=== PATIENT | female | born 1985 | race Caucasian/White ===

== ENCOUNTER 2019-12-08 12:28 | Inpatient (IN) | payer SELFPAY ==
[2019-12-08] MEDS ORDERED: Promethazine HCl 25 MG/ML VIAL IM/IV PRN (15:45)
--- NOTE | 2019-12-08 15:46 | PDOC.HHP ---
Hospitalist HPI - History of Present Illness vomiting History of Present Illness: This is a 34 year old female with B12 deficiency who presented to the hospital with intractable vomiting. The patient states she lives in [place] and was in town looking for apartments in [place]. On Wednesday she ate some shrimp at a restaurant and at 1 am on Wednesday she developed severe vomiting. Patient states she has been vomiting everything she eats and even vomits ice chips. She tried a nausea suppository at home with no relief. It is non-bilious in color. She also reports RUQ and LUQ abdominal pain that occurs when she vomits that's non-radiating. She has some relief with taking hot baths. She also reported a fever, but no chills. She also has been having profuse diarrhea, too many times to count. Her diarrhea is not bloody. She went an outside ER today and said they swabbed her stool and it tested negative for E coli, parasites and viruses. She had a potassium of 2.8 and was given potassium supplements orally and states that she threw half of them up so was transferred here. The patient states she was recently admitted in [facility] in [place] from 11/24 -11/27 for intractable vomiting. She smoked some marijuana prior to that and on discharge was told to stop smoking. She reports having a CT abdomen done at that hospital and was told that she may have had a splenic infarct because of blood in her urine and to follow up with PCP. However she has no PCP so this did not occur. She reports she was starting to eat regularly again on 12/01 before this new episode occurred. Last sexual activity was last summer. ED Course: The patient went to an outside ER. Vitals showed BP of 146/100, HR 64, oxygen saturation 98% on room air, temp 97. CBC showed normal WBC of 9.1, hemoglobin 14.4. Potassium was 2.8. UA was negative. Urine HCG was negative. Stool culture was negative for Campylobacter, C diff, Plesiomonas, Salmonella, Vibro, Yersinia, E coli, ETEC, crypto, cyclospora, entamoeba, giardia, adenovirus, astrovirus, norovirus, rotavirus and sapovirus. She was sent here for severe dehydration. Hospitalist ROS - Review of Systems Constitutional: reports: fever. denies: chills ENT: denies: ear pain, ear discharge Respiratory: denies: cough, dry, shortness of breath Cardiovascular: denies: chest pain, palpitations, orthopnea Gastrointestinal: reports: nausea, vomiting, abdominal pain, diarrhea Genitourinary: reports: frequency. denies: dysuria, hematuria Musculoskeletal: denies: neck pain, shoulder pain Skin: denies: rash, lesions Neurological: denies: weakness, numbness Hospitalist History - Past Medical History Other Medical History: Vitamin B12 deficiency - Past Surgical History Other Surgical History: IUD Left arm - Family History Other Family History: No family history of GI disease - Social History Smoking Status: Current some day smoker (smokes occasionally. Smokes marijuana monthly) Alcohol: reports: Occassional Drugs: reports: none Living Situation: Other (lives with her daughter who is 18. Daughter is moving to [place] school) - Exam General Appearance: NAD, awake alert Eye: PERRL, anicteric sclera Eye - other findings: appears to have mild exopthalmos ENT: normocephalic atraumatic, no oropharyngeal lesions Neck: supple, no JVD Heart: RRR, no murmur, no gallops, no rubs Respiratory: CTAB, no wheezes, no rales, no ronchi Gastrointestinal: soft, non-distended, normal bowel sounds Gastrointestinal - other findings: RUQ tenderness Extremities: no cyanosis, no clubbing, no edema Skin: normal turgor, no lesions, no rashes Neurological: cranial nerve grossly intact, normal sensation to touch, no focal deficits, no new deficit Musculoskeletal: normal tone, normal strength, no muscle wasting Psychiatric: normal affect, normal behavior, A&O x 3, oriented to person, oriented to place Hospitalist Results - Labs Lab results: Labs reviewed per HPI mentioned above Hospitalist H&P A/P - Plan Plan: This is a 34 year old male with past medical history of B12 deficiency who presented to the hospital #Acute gastroenteritis versus cannabis hyperemesis syndrome #Intractable vomiting #Diarrhea #Hypokalemia - will hydrate with IV fluids for now. - will repeat stool cultures, stool for ova and parasite. Culture at outside hospital negative for C diff, viruses, bacteria. -pt wants to try clear liquids so will order but advised to go back to NPO if she does not tolerate - potassium 2.8 at outside ER today. Will repeat CMP and replace electrolytes accordingly - will obtain medical records regarding patient's prior CT abdomen in [place] - zofran and phenergan prn for nausea Vitamin B12 deficiency - will check Vitamin B12 levels since patient has no PCP and she stopped taking supplements recently Code status: full code
[2019-12-08 16:48] LABS: Hemoglobin 13.2 g/dL (12.0-16.0); Mean Corpuscular HGB CONC 33.7 g/dL (32.0-36.0); Mean Corpuscular Hemoglobin 30.3 pg (27.0-31.0); Mean Corpuscular Volume 89.9 fL (78.0-98.0); Mean Platelet Volume 8.2 fL (7.4-10.4); Platelet Count 272 thou/uL (130-400); RBC Distribution Width 11.4 % (11.5-14.5); Red Blood Cell (RBC) Count 4.35 mill/uL (4.20-5.40); White Blood Cell (WBC) Count 8.3 thou/uL (4.8-10.8)
[2019-12-08 17:08] LABS: ALT (SGPT) 9 U/L (8-55); AST (SGOT) 11 U/L (5-34); Albumin 4.1 g/dL (3.5-5.0); Alkaline Phosphatase 49 U/L (40-110); Anion Gap 10 mmol/L (10-20); BUN (Urea Nitrogen) 12 mg/dL (7.0-18.7); Bilirubin, Total 1.1 mg/dL (0.2-1.2); Calc. Creatinine Clearance 0 mL/min (70-130); Calcium 9.1 mg/dL (7.8-10.44); Carbon Dioxide 21 mmol/L (22-29); Chloride 112 mmol/L (98-107); Estimated GFR-MDRD 89; Globulin 2.3 g/dL (2.4-3.5); Glucose 90 mg/dL (70-105); Potassium 3.2 mmol/L (3.5-5.1); Protein, Total 6.4 g/dL (6.0-8.3); Sodium 140 mmol/L (136-145)
[2019-12-08 17:33] LABS: Thyroid Stimulating Hormone 1.3264 uIU/mL (0.35-4.94)
[2019-12-08 17:51] VITALS: BMI 23.6
[2019-12-08] MEDS ORDERED: Potassium Chloride 10 MEQ in Premix Bag 1 BAG IVPB SCH (18:00)
[2019-12-08] MEDS: Dextrose 5 % And 0.9 % NaCl 1,000 ML IV SCH (19:20)
[2019-12-08] MEDS: Potassium Chloride 10 MEQ in Premix Bag 1 BAG IVPB SCH ×3 (19:21→23:39)
[2019-12-08] MEDS: Ondansetron PF 4 MG/2 ML Vial IVP PRN (19:37)
[2019-12-08] MEDS: Famotidine 20 MG TAB PO SCH (20:35)
[2019-12-08] MEDS: Acetaminophen 325 MG TAB PO PRN (20:38)
[2019-12-08] MEDS ORDERED: Promethazine HCl 25 MG in Sodium Chloride 0.9% 50 ML IVPB PRN (22:53)
[2019-12-08] MEDS: Ketorolac Tromethamine 30 MG/ML VIAL IVP SCH (23:58)
[2019-12-09 01:42] LABS: Bacteria/HPF None Seen HPF (None Seen); Bilirubin Negative (Negative); Blood, Urine Negative (Negative); Clarity Clear (Clear); Glucose, Urine (Dipstick) Normal (Negative); Leukocyte 75 Leu/uL (Negative); Nitrite Negative (Negative); Protein, Urine (Dipstick) Negative (Neg-Trace); RBC/HPF 0-3 HPF (0-3); Urobilinogen Normal mg/dL (Less than 2); WBC/HPF 0-3 HPF (0-3)
[2019-12-09] MEDS: Lidocaine 5% Patch TD SCH (01:44)
[2019-12-09] MEDS: Lorazepam 2 MG/ML VIAL SLOW IVP PRN ×2 (01:45→16:18)
[2019-12-09 01:53] LABS: Amphetamine Not Detected (NotDetected); Barbiturates Screen Not Detected (NotDetected); Benzodiazepine Screen Not Detected (NotDetected); Cocaine Metabolite Screen Not Detected (NotDetected); Medtox Control Line Valid? VALID (VALID); Medtox Reader # READER 4; Methadone Not Detected (NotDetected); Methamphetamine Not Detected (NotDetected); Opiate Screen Detected (NotDetected); Oxycodone Screen Not Detected (NotDetected); Phencyclidine (PCP) Not Detected (NotDetected); THC/Cannabinoid Screen Detected (NotDetected); Tricyclic Screen Not Detected (NotDetected)
[2019-12-09] MEDS: Ketorolac Tromethamine 30 MG/ML VIAL IVP SCH ×2 (05:03→11:26)
[2019-12-09] MEDS: Acetaminophen 325 MG TAB PO PRN (05:05)
[2019-12-09] MEDS: Ondansetron PF 4 MG/2 ML Vial IVP PRN ×2 (05:05→11:28)
[2019-12-09] MEDS: Dextrose 5 % And 0.9 % NaCl 1,000 ML IV SCH ×3 (05:34→20:35)
[2019-12-09 06:08] LABS: Anion Gap 15 mmol/L (10-20); BUN (Urea Nitrogen) 7 mg/dL (7.0-18.7); Calc. Creatinine Clearance 124 mL/min (70-130); Calcium 9.4 mg/dL (7.8-10.44); Carbon Dioxide 16 mmol/L (22-29); Chloride 108 mmol/L (98-107); Estimated GFR-MDRD Greater than 90; Glucose 113 mg/dL (70-105); Potassium 3.2 mmol/L (3.5-5.1); Sodium 136 mmol/L (136-145)
[2019-12-09 06:18] LABS: #Lymphocytes 1.2 thou/uL (1.20-3.40); #Monocytes 0.3 thou/uL (0.11-0.59); #Neutrophils 5.8 thou/uL (1.40-6.50); %Basophils 0.4 % (0.0-1.0); %Eosinophils 0.1 % (0.0-10.0); %Lymphocytes 16.8 % (21.0-51.0); %Monocytes 3.8 % (0.0-10.0); %Neutrophils 79.1 % (42.0-75.0); Hemoglobin 14.6 g/dL (12.0-16.0); Mean Corpuscular HGB CONC 34.8 g/dL (32.0-36.0); Mean Corpuscular Hemoglobin 30.2 pg (27.0-31.0); Mean Platelet Volume 8.4 fL (7.4-10.4); Platelet Count 273 thou/uL (130-400); RBC Distribution Width 11.2 % (11.5-14.5); Red Blood Cell (RBC) Count 4.84 mill/uL (4.20-5.40); White Blood Cell (WBC) Count 7.3 thou/uL (4.8-10.8)
[2019-12-09] MEDS ORDERED: Potassium Chloride 20 MEQ TAB PO SCH (08:00)
[2019-12-09] MEDS ORDERED: Iopamidol-370 76% 500 ML 1 ML ONE (10:09)
[2019-12-09] MEDS ORDERED: Potassium Chloride 40 MEQ in Sodium Chloride 0.9% 250 ML 250 ML IVPB SCH (11:15)
[2019-12-09] MEDS: Famotidine 20 MG TAB PO SCH (11:21)
--- NOTE | 2019-12-09 13:57 | ULT ---
ULTRASOUND ABDOMEN LIMITED: (RIGHT UPPER QUADRANT) DATE: 12/09/2019 HISTORY: 34-year-old female with chills and vomiting. FINDINGS: Gallbladder: Normal wall thickness. No gallstones or sludge identified. No pericholecystic fluid. Liver: Normal parenchymal echogenicity. Right kidney: No hydronephrosis. Pancreas: Visualized, with no gross sonographic abnormality identified (although ultrasound is relati vely insensitive for the detection of pancreatic pathology compared to CT and MRI.). Common duct caliber: 5 mm. IMPRESSION: Normal.
[2019-12-09] MEDS: Morphine 2 MG/ML SYRINGE SLOW IVP PRN ×2 (13:58→20:33)
[2019-12-09] MEDS: Scopolamine 1.5 mg/72 hour Patch TD SCH (14:01)
[2019-12-09] MEDS: Lidocaine Patch Removal 1 EACH TOP SCH (14:14)
[2019-12-09 14:51] LABS: Pregnancy Test - Urine (BHCG) Negative (Negative); Pregu Control Background? CLEAR/WHITE (CLR/WHITE); Pregu Control Bar Appear? YES (CONTROL BAR); Specific Gravity 1.016 (1.002-1.036)
--- NOTE | 2019-12-09 17:38 | CT ---
CT ABDOMEN AND PELVIS WITH ORAL AND IV CONTRAST: 12/09/19 HISTORY: 34-year-old female with chills and vomiting, acute abdominal pain. FINDINGS: There are bilateral breast implants. The lung bases are clear. No calcified gallstones are seen. The liver, spleen, pancreas, adrenal glands, and kidneys are normal. No free air, free fluid or lymphaden opathy is seen in the abdomen or pelvis. Uterus and ovaries are present. The small bowel loops are no t abnormally dilated. An abnormal appendix is not visualized. No acute osseous abnormalities are seen . No osteolytic or osteoblastic lesions are noted. The abdominal aorta is of normal caliber. IMPRESSION: No acute process. POS: [facility]
[2019-12-09] MEDS ORDERED: Famotidine/PF 20 mg/2ml Vial SLOW IVP SCH (21:00)
--- NOTE | 2019-12-09 21:13 | PDOC.HOSPP ---
- Subjective Encounter Date: 12/09/19 Subjective: The patient still complaining of abdominal pain, nausea and vomiting. She is unable to tolerate any oral intake. - Objective Vital Signs & Weight: Vital Signs (12 hours) Temp Pulse Resp BP Pulse Ox 12/09/19 19:47 98.7 F 51 L 16 133/87 97 12/09/19 16:00 98.9 F 51 L 16 125/81 98 12/09/19 12:00 98.1 F 49 L 18 135/93 H 98 Weight Admit Weight 151 lb Weight 151 lb I&O: 12/08/19 12/09/19 12/10/19 06:59 06:59 06:59 Intake Total 250 1050 Output Total 1000 Balance 250 50 Result Diagrams: 12/09/19 05:17 12/09/19 05:17 Hospitalist ROS - Medication Medications: Active Medications Generic Name Dose Route Start Last Admin Trade Name Freq PRN Reason Stop Dose Admin Acetaminophen 650 mg 12/08/19 15:42 12/09/19 05:05 Tylenol PO 650 mg Q4H PRN Administration Headache/Fever/Mild Pain (1-3) Famotidine 20 mg 12/09/19 21:00 12/09/19 20:32 Pepcid SLOW IVP 20 mg BID YANELI Administration Dextrose/Sodium Chloride 1,000 mls @ 75 mls/hr 12/08/19 16:15 12/09/19 20:35 D5 0.9% Ns IV 1,000 mls .[id number] YANELI Administration Promethazine HCl 25 mg/ Sodium 51 mls @ 204 mls/hr 12/08/19 22:53 12/08/19 23 :13 Chloride IVPB 51 mls Q6H PRN Administration Nausea Lidocaine 1 patch 12/09/19 02:00 12/09/19 01:44 Lidoderm 5% Patch TD 1 patch 0200 YANELI Administration Lorazepam 1 mg 12/08/19 15:57 12/09/19 16:18 Ativan SLOW IVP 1 mg Q4H PRN Administration Nausea Miscellaneous Medication 1 each 12/09/19 14:00 12/09/19 14:14 Lidocaine Patch Removal TOP Not Given 1400 YANELI Morphine Sulfate 2 mg 12/09/19 13:23 12/09/19 20:33 Morphine SLOW IVP 2 mg Q4H PRN Administration Moderate to Severe Pain (6-10) Ondansetron HCl 4 mg 12/08/19 15:42 12/09/19 11:28 Zofran IVP 4 mg Q6H PRN Administration Nausea/Vomiting Scopolamine 1.5 mg 12/09/19 13:30 12/09/19 14:01 Transderm Scop TD 1.5 mg Q3D YANELI Administration - Exam General Appearance: awake alert ENT: normocephalic atraumatic Neck: supple Heart: RRR Respiratory: CTAB Gastrointestinal: soft, non-distended, normal bowel sounds Neurological: cranial nerve grossly intact, no focal deficits Hosp A/P (1) Intractable nausea and vomiting Code(s): R11.2 - NAUSEA WITH VOMITING, UNSPECIFIED Status: Acute (2) Dehydration Code(s): E86.0 - DEHYDRATION Status: Acute (3) Abdominal pain Code(s): R10.9 - UNSPECIFIED ABDOMINAL PAIN Status: Acute (4) Cannabis abuse Code(s): F12.10 - CANNABIS ABUSE, UNCOMPLICATED Status: Acute (5) Opioid abuse Code(s): F11.10 - OPIOID ABUSE, UNCOMPLICATED Status: Acute - Plan CT Abdomen and pelvis and US abdomen unremarkable. Her pain could be due to gastritis or cannabis hyperemesis syndrome. Continue IV fluids Start Protonix and scopolamine patch.
[2019-12-09] MEDS ORDERED: Sodium Chloride 0.9% (PF) 10 ML VIAL FS PRN (21:42)
[2019-12-09] MEDS ORDERED: Pantoprazole 40 MG VIAL IVP SCH (21:45)
[2019-12-10] MEDS: Lidocaine 5% Patch TD SCH (02:30)
[2019-12-10] MEDS: Pantoprazole 40 MG VIAL IVP SCH ×2 (09:11→20:26)
--- NOTE | 2019-12-10 11:13 | PDOC.HOSPP ---
- Subjective Encounter Date: 12/10/19 Subjective: Feels better. Less nausea and abdominal pain. Tolerating liquid. - Objective Vital Signs & Weight: Vital Signs (12 hours) Temp Pulse Resp BP Pulse Ox 12/10/19 07:42 98.2 F 56 L 16 110/71 97 12/10/19 05:00 17 12/10/19 00:00 18 Weight Admit Weight 151 lb Weight 151 lb I&O: 12/09/19 12/10/19 12/11/19 06:59 06:59 06:59 Intake Total 250 2110 Output Total 1000 Balance 250 1110 Result Diagrams: 12/09/19 05:17 12/09/19 05:17 Hospitalist ROS - Medication Medications: Active Medications Generic Name Dose Route Start Last Admin Trade Name Freq PRN Reason Stop Dose Admin Acetaminophen 650 mg 12/08/19 15:42 12/09/19 05:05 Tylenol PO 650 mg Q4H PRN Administration Headache/Fever/Mild Pain (1-3) Dextrose/Sodium Chloride 1,000 mls @ 75 mls/hr 12/08/19 16:15 12/09/19 20:35 D5 0.9% Ns IV 1,000 mls .[id number] YANELI Administration Promethazine HCl 25 mg/ Sodium 51 mls @ 204 mls/hr 12/08/19 22:53 12/08/19 23 :13 Chloride IVPB 51 mls Q6H PRN Administration Nausea Lidocaine 1 patch 12/09/19 02:00 12/10/19 02:30 Lidoderm 5% Patch TD Not Given 0200 YANELI Lorazepam 1 mg 12/08/19 15:57 12/09/19 16:18 Ativan SLOW IVP 1 mg Q4H PRN Administration Nausea Miscellaneous Medication 1 each 12/09/19 14:00 12/09/19 14:14 Lidocaine Patch Removal TOP Not Given 1400 YANELI Morphine Sulfate 2 mg 12/09/19 13:23 12/09/19 20:33 Morphine SLOW IVP 2 mg Q4H PRN Administration Moderate to Severe Pain (6-10) Ondansetron HCl 4 mg 12/08/19 15:42 12/09/19 11:28 Zofran IVP 4 mg Q6H PRN Administration Nausea/Vomiting Pantoprazole Sodium 40 mg 12/10/19 09:00 12/10/19 09:11 Protonix IVP 40 mg Q12HR YANELI Administration Scopolamine 1.5 mg 12/09/19 13:30 12/09/19 14:01 Transderm Scop TD 1.5 mg Q3D YANELI Administration - Exam General Appearance: awake alert ENT: normocephalic atraumatic Neck: supple, no JVD Respiratory: normal chest expansion, no tachypnea Neurological: cranial nerve grossly intact, no focal deficits Psychiatric: A&O x 3 Hosp A/P (1) Intractable nausea and vomiting Code(s): R11.2 - NAUSEA WITH VOMITING, UNSPECIFIED Status: Acute (2) Dehydration Code(s): E86.0 - DEHYDRATION Status: Acute (3) Abdominal pain Code(s): R10.9 - UNSPECIFIED ABDOMINAL PAIN Status: Acute (4) Cannabis abuse Code(s): F12.10 - CANNABIS ABUSE, UNCOMPLICATED Status: Acute (5) Opioid abuse Code(s): F11.10 - OPIOID ABUSE, UNCOMPLICATED Status: Acute - Plan CT Abdomen and pelvis and US abdomen unremarkable. Her pain could be due to gastritis or cannabis hyperemesis syndrome. Continue IV fluids Continue Protonix and scopolamine patch. Her symptoms are improving.
[2019-12-10] MEDS: Acetaminophen 325 MG TAB PO PRN (13:14)
[2019-12-10] MEDS: Ondansetron PF 4 MG/2 ML Vial IVP PRN (13:14)
[2019-12-10] MEDS: Dextrose 5 % And 0.9 % NaCl 1,000 ML IV SCH ×2 (13:27→22:02)
[2019-12-10] MEDS: Lidocaine Patch Removal 1 EACH TOP SCH (14:02)
[2019-12-10] MEDS: Morphine 2 MG/ML SYRINGE SLOW IVP PRN (20:32)
[2019-12-10] MEDS ORDERED: Famotidine/PF 20 mg/2ml Vial SLOW IVP SCH (21:00)
[2019-12-11] MEDS: Dextrose 5 % And 0.9 % NaCl 1,000 ML IV SCH ×2 (02:05→16:24)
[2019-12-11] MEDS: Lidocaine 5% Patch TD SCH (02:16)
[2019-12-11] MEDS: Pantoprazole 40 MG VIAL IVP SCH ×2 (08:08→20:30)
[2019-12-11 08:48] LABS: Hemoglobin 13.4 g/dL (12.0-16.0); Mean Corpuscular HGB CONC 34.9 g/dL (32.0-36.0); Mean Corpuscular Hemoglobin 30.9 pg (27.0-31.0); Mean Corpuscular Volume 88.5 fL (78.0-98.0); Mean Platelet Volume 7.9 fL (7.4-10.4); Platelet Count 223 thou/uL (130-400); Red Blood Cell (RBC) Count 4.35 mill/uL (4.20-5.40); White Blood Cell (WBC) Count 5.9 thou/uL (4.8-10.8)
[2019-12-11 09:02] LABS: Anion Gap 11 mmol/L (10-20); BUN (Urea Nitrogen) Less than 4 mg/dL (7.0-18.7); Calc. Creatinine Clearance 126 mL/min (70-130); Calcium 8.6 mg/dL (7.8-10.44); Carbon Dioxide 21 mmol/L (22-29); Chloride 110 mmol/L (98-107); Estimated GFR-MDRD Greater than 90; Glucose 98 mg/dL (70-105); Potassium 3.2 mmol/L (3.5-5.1); Sodium 139 mmol/L (136-145)
--- NOTE | 2019-12-11 10:23 | PDOC.HOSPP ---
- Subjective Encounter Date: 12/11/19 Subjective: Tolerating clear liquid diet. - Objective Vital Signs & Weight: Vital Signs (12 hours) Temp Pulse Resp BP Pulse Ox 12/11/19 07:03 98.5 F 59 L 16 109/71 99 Weight Admit Weight 151 lb Weight 151 lb I&O: 12/10/19 12/11/19 12/12/19 06:59 06:59 06:59 Intake Total 2110 1120 Output Total 1000 Balance 1110 1120 Result Diagrams: 12/11/19 08:39 12/11/19 08:39 Hospitalist ROS - Medication Medications: Active Medications Generic Name Dose Route Start Last Admin Trade Name Freq PRN Reason Stop Dose Admin Acetaminophen 650 mg 12/08/19 15:42 12/10/19 13:14 Tylenol PO 650 mg Q4H PRN Administration Headache/Fever/Mild Pain (1-3) Dextrose/Sodium Chloride 1,000 mls @ 75 mls/hr 12/08/19 16:15 12/11/19 02:05 D5 0.9% Ns IV 1,000 mls .[id number] YANELI Administration Lidocaine 1 patch 12/09/19 02:00 12/11/19 02:16 Lidoderm 5% Patch TD Not Given 0200 YANELI Lorazepam 1 mg 12/08/19 15:57 12/09/19 16:18 Ativan SLOW IVP 1 mg Q4H PRN Administration Nausea Miscellaneous Medication 1 each 12/09/19 14:00 12/10/19 14:02 Lidocaine Patch Removal TOP Not Given 1400 YANELI Morphine Sulfate 2 mg 12/09/19 13:23 12/10/19 20:32 Morphine SLOW IVP 2 mg Q4H PRN Administration Moderate to Severe Pain (6-10) Ondansetron HCl 4 mg 12/08/19 15:42 12/10/19 13:14 Zofran IVP 4 mg Q6H PRN Administration Nausea/Vomiting Pantoprazole Sodium 40 mg 12/10/19 09:00 12/11/19 08:08 Protonix IVP 40 mg Q12HR YANELI Administration Scopolamine 1.5 mg 12/09/19 13:30 12/09/19 14:01 Transderm Scop TD 1.5 mg Q3D YANELI Administration - Exam General Appearance: awake alert Neck: supple Gastrointestinal: soft, non-distended Neurological: cranial nerve grossly intact, no focal deficits Hosp A/P (1) Intractable nausea and vomiting Code(s): R11.2 - NAUSEA WITH VOMITING, UNSPECIFIED Status: Acute (2) Dehydration Code(s): E86.0 - DEHYDRATION Status: Acute (3) Abdominal pain Code(s): R10.9 - UNSPECIFIED ABDOMINAL PAIN Status: Acute (4) Cannabis abuse Code(s): F12.10 - CANNABIS ABUSE, UNCOMPLICATED Status: Acute (5) Opioid abuse Code(s): F11.10 - OPIOID ABUSE, UNCOMPLICATED Status: Acute - Plan CT Abdomen and pelvis and US abdomen unremarkable. Her pain could be due to gastritis or cannabis hyperemesis syndrome. Continue IV fluids Continue Protonix and scopolamine patch. Her symptoms are improving. Advance diet as tolerated.
[2019-12-11] MEDS: Lorazepam 2 MG/ML VIAL SLOW IVP PRN ×2 (11:42→20:30)
[2019-12-11 12:51] LABS: Band 1 % (5-11); Eosinophils 1 % (0-10); Lymphocytes 40 % (21-51); MDiff Complete? YES; Monocytes 6 % (0-10); Neutrophil 52 % (42-75); RBC Morphology Normal
[2019-12-11] MEDS: Lidocaine Patch Removal 1 EACH TOP SCH (14:16)
[2019-12-12] MEDS: Lidocaine 5% Patch TD SCH (01:58)
[2019-12-12] MEDS: Pantoprazole 40 MG VIAL IVP SCH ×2 (07:44→20:28)
[2019-12-12] MEDS: Ondansetron PF 4 MG/2 ML Vial IVP PRN ×3 (07:44→23:17)
--- NOTE | 2019-12-12 09:37 | PDOC.HOSPP ---
- Subjective Encounter Date: 12/12/19 Subjective: Persistent vomiting with bloodstreaks. - Objective Vital Signs & Weight: Vital Signs (12 hours) Temp Pulse Resp BP Pulse Ox 12/12/19 07:03 98.8 F 58 L 20 104/65 97 Weight Admit Weight 151 lb Weight 151 lb I&O: 12/11/19 12/12/19 12/13/19 06:59 06:59 06:59 Intake Total 1120 2780 Balance 1120 2780 Result Diagrams: 12/11/19 08:39 12/11/19 08:39 Hospitalist ROS - Medication Medications: Active Medications Generic Name Dose Route Start Last Admin Trade Name Freq PRN Reason Stop Dose Admin Acetaminophen 650 mg 12/08/19 15:42 12/10/19 13:14 Tylenol PO 650 mg Q4H PRN Administration Headache/Fever/Mild Pain (1-3) Dextrose/Sodium Chloride 1,000 mls @ 75 mls/hr 12/08/19 16:15 12/11/19 16:24 D5 0.9% Ns IV 1,000 mls .[id number] YANELI Administration Lidocaine 1 patch 12/09/19 02:00 12/12/19 01:58 Lidoderm 5% Patch TD Not Given 0200 YANELI Lorazepam 1 mg 12/08/19 15:57 12/11/19 20:30 Ativan SLOW IVP 1 mg Q4H PRN Administration Nausea Miscellaneous Medication 1 each 12/09/19 14:00 12/11/19 14:16 Lidocaine Patch Removal TOP Not Given 1400 YANELI Morphine Sulfate 2 mg 12/09/19 13:23 12/10/19 20:32 Morphine SLOW IVP 2 mg Q4H PRN Administration Moderate to Severe Pain (6-10) Ondansetron HCl 4 mg 12/08/19 15:42 12/12/19 07:44 Zofran IVP 4 mg Q6H PRN Administration Nausea/Vomiting Pantoprazole Sodium 40 mg 12/10/19 09:00 12/12/19 07:44 Protonix IVP 40 mg Q12HR YANELI Administration Scopolamine 1.5 mg 12/09/19 13:30 12/09/19 14:01 Transderm Scop TD 1.5 mg Q3D YANELI Administration - Exam General Appearance: ill appearing ENT: normocephalic atraumatic Neck: supple, no JVD Respiratory: normal chest expansion, no tachypnea Gastrointestinal: soft, tender to palpation Neurological: cranial nerve grossly intact, no focal deficits Hosp A/P (1) Intractable nausea and vomiting Code(s): R11.2 - NAUSEA WITH VOMITING, UNSPECIFIED Status: Acute (2) Dehydration Code(s): E86.0 - DEHYDRATION Status: Acute (3) Abdominal pain Code(s): R10.9 - UNSPECIFIED ABDOMINAL PAIN Status: Acute (4) Cannabis abuse Code(s): F12.10 - CANNABIS ABUSE, UNCOMPLICATED Status: Acute (5) Opioid abuse Code(s): F11.10 - OPIOID ABUSE, UNCOMPLICATED Status: Acute - Plan CT Abdomen and pelvis and US abdomen unremarkable. Her pain could be due to gastritis or cannabis hyperemesis syndrome. Pt with history of B12 Def. ? gastric atrophy with pernicious anemia. Continue IV fluids Continue Protonix and scopolamine patch. Clear liquid diet. Consulted Dr. Caballero.
[2019-12-12] MEDS ORDERED: Potassium Chloride 20 MEQ in Premix Bag 1 BAG IVPB SCH ×2 (10:00)
[2019-12-12] MEDS: Lorazepam 2 MG/ML VIAL SLOW IVP PRN ×2 (11:19→20:28)
[2019-12-12] MEDS: Acetaminophen 325 MG TAB PO PRN (11:36)
[2019-12-12 11:52] LABS: Mean Corpuscular HGB CONC 34.1 g/dL (32.0-36.0); Mean Corpuscular Hemoglobin 30.4 pg (27.0-31.0); Mean Corpuscular Volume 89.1 fL (78.0-98.0); Mean Platelet Volume 8.4 fL (7.4-10.4); Platelet Count 263 thou/uL (130-400); RBC Distribution Width 11.2 % (11.5-14.5); Red Blood Cell (RBC) Count 4.62 mill/uL (4.20-5.40); White Blood Cell (WBC) Count 6.4 thou/uL (4.8-10.8)
[2019-12-12 12:09] LABS: Anion Gap 13 mmol/L (10-20); BUN (Urea Nitrogen) Less than 4 mg/dL (7.0-18.7); Calc. Creatinine Clearance 120 mL/min (70-130); Calcium 9.2 mg/dL (7.8-10.44); Carbon Dioxide 23 mmol/L (22-29); Chloride 108 mmol/L (98-107); Estimated GFR-MDRD Greater than 90; Glucose 98 mg/dL (70-105); Sodium 141 mmol/L (136-145)
[2019-12-12 12:19] LABS: Band 4 % (5-11); Eosinophils 1 % (0-10); Lymphocytes 27 % (21-51); MDiff Complete? YES; Metamyelocyte 2 % (0-0); Neutrophil 63 % (42-75); Reactive Lymphocytes 3 % (0-10)
--- NOTE | 2019-12-12 12:39 | CON ---
DATE OF CONSULTATION: 12/12/2019 REQUESTING PHYSICIAN: Maria De Jesus Scott MD REASON FOR CONSULTATION: Nausea and vomiting with hematemesis. HISTORY OF PRESENT ILLNESS: Hui Castillo is a 34-year-old woman who lives in [place]. She was admitted to the hospital 4 days ago with acute recurrence of nausea and vomiting, which had actually started back up several days prior. Notably, she was hospitalized in mid November in [place] with similar symptoms. She evidently had CT lab and stool workup there, which was all negative and the impression was probable cannabinoid hyperemesis syndrome. After discharge, she did well for several days, but eventually started having symptoms again 1 week ago. She says initially there was a lot of vomiting and a lot of nonbloody diarrhea. The diarrhea quickly resolved after admission here, but the nausea and vomiting have persisted. Then this morning, there started to be some red blood streaks in the emesis and this was quite alarming to her. She has associated epigastric discomfort. Notably, she says that at least when symptoms started, the only way she could get relief was by getting in a very hot bath. However, she is not really feeling that is giving her much relief at this point. She has been receiving pantoprazole IV as well as Zofran, all without much relief of symptoms at this point. REVIEW OF SYSTEMS: Full review of systems including constitutional, head, eyes, ears, nose, throat, GI, , cardiovascular, respiratory, musculoskeletal, neurologic systems is negative except as noted in the HPI. PAST MEDICAL HISTORY: Vitamin B12 deficiency, IUD. FAMILY HISTORY: She says her paternal grandfather had colon cancer. SOCIAL HISTORY: She will occasionally smoke cigarettes and occasionally drink alcohol. She has a history of marijuana use, which she terms occasional ever since age 14 or so, but she has completely quit all marijuana for the past 3 weeks since her recent hospitalization. ALLERGIES: NO KNOWN DRUG ALLERGIES. MEDICATIONS: 1. Tylenol p.r.n. 2. Lidocaine patch. 3. Ativan p.r.n. 4. Morphine p.r.n. 5. Zofran p.r.n. 6. Pantoprazole 40 mg IV q.12 hours. 7. Scopolamine patch. PHYSICAL EXAMINATION: VITAL SIGNS: Temperature 98.8, pulse 58, blood pressure 104/65, 97% oxygen saturation on room air. GENERAL: A 34-year-old woman, lying in bed fairly comfortably, in mild distress from nausea. Appears tired, but nontoxic. SKIN: No jaundice. No rashes were palpable. HEENT: Eyes; no scleral icterus. Extraocular movements intact. ENT; mucous membranes moist. No oral lesions. LYMPH: No submandibular or supraclavicular lymphadenopathy. Thyroid nontender to palpation. HEART: Regular rate and rhythm. LUNGS: Clear to auscultation bilaterally. ABDOMEN: Soft, nontender to palpation. EXTREMITIES: No peripheral edema. VESSELS: Radial pulses 2+ bilaterally. NEUROLOGIC: Cranial nerves 2 through 12 intact bilaterally. No focal deficits. LABORATORY STUDIES: Hemoglobin 13.4 and stable, WBC 5.9, platelets 223. Sodium 139, potassium 3.2, BUN less than 4, creatinine 0.67, glucose 98. TSH 1.32. Vitamin B12 is 551. LFTs all normal with total bilirubin is 1.1, alkaline phosphatase 49, AST 11, ALT 9, and albumin 4.1. Urine test is negative. Urinalysis is negative for wbc's. Urine drug screen is positive for both opioids and cannabinoids. Outside ER labs showed extensive stool studies, which were all negative. IMAGING STUDIES: Abdominal ultrasound was normal showing normal gallbladder, liver, and common bile duct. CT of the abdomen and pelvis is also normal exam. ASSESSMENT/PLAN: 1. Nausea and vomiting, intractable. 2. Hematemesis, small volume, acute this morning. 3. History of long-term marijuana use. The patient's report of relief with hot baths and showers, as well as fairly extensive negative workup to date, is all highly suggestive of cannabinoid hyperemesis syndrome. On the other hand, she has never undergone upper endoscopy, so cannot rule out upper GI mucosal pathology. The current scant hematemesis likely represents erosive esophagitis from all of her recent vomiting, perhaps small Nina-Bo tear, but she is clinically stable from this. Certainly, endoscopic investigation is warranted. Continue the pantoprazole IV q.12 hours for now, but we will plan for diagnostic esophagogastroduodenoscopy tomorrow. I discussed with the patient that she does need to continue to avoid all marijuana going forward as she has for the past few weeks. Further recommendations following esophagogastroduodenoscopy tomorrow. I do not see a lipase level. Clinically, this does not appear to represent pancreatitis and notes normal appearing pancreas on imaging. However, we will order a lipase level with tomorrow morning's labs. Thank you for the consultation. Please call anytime with questions or concerns. Job ID: [id number]
[2019-12-12] MEDS: Scopolamine 1.5 mg/72 hour Patch TD SCH (14:14)
[2019-12-12] MEDS: Lidocaine Patch Removal 1 EACH TOP SCH (14:15)
[2019-12-12 22:08] LABS: Potassium 3.3 mmol/L (3.5-5.1)
[2019-12-12] MEDS: Morphine 2 MG/ML SYRINGE SLOW IVP PRN (23:15)
[2019-12-12] MEDS: Dextrose 5 % And 0.9 % NaCl 1,000 ML IV SCH (23:26)
[2019-12-13] MEDS: Lidocaine 5% Patch TD SCH (00:29)
[2019-12-13] MEDS: Lorazepam 2 MG/ML VIAL SLOW IVP PRN ×3 (00:30→23:02)
[2019-12-13 06:11] LABS: Anion Gap 10 mmol/L (10-20); BUN (Urea Nitrogen) 5 mg/dL (7.0-18.7); Calc. Creatinine Clearance 118 mL/min (70-130); Calcium 8.7 mg/dL (7.8-10.44); Carbon Dioxide 25 mmol/L (22-29); Chloride 105 mmol/L (98-107); Estimated GFR-MDRD Greater than 90; Glucose 83 mg/dL (70-105); Lipase 10 U/L (8-78); Potassium 3.3 mmol/L (3.5-5.1); Sodium 137 mmol/L (136-145)
[2019-12-13 06:12] LABS: Eosinophils 2 % (0-10); Hemoglobin 12.6 g/dL (12.0-16.0); Lymphocytes 41 % (21-51); MDiff Complete? YES; Mean Corpuscular HGB CONC 34.2 g/dL (32.0-36.0); Mean Corpuscular Hemoglobin 30.7 pg (27.0-31.0); Mean Corpuscular Volume 89.8 fL (78.0-98.0); Mean Platelet Volume 8.3 fL (7.4-10.4); Monocytes 5 % (0-10); Neutrophil 50 % (42-75); Platelet Count 229 thou/uL (130-400); Platelet Morphology Comment Appears Adequate; RBC Morphology Normal; Reactive Lymphocytes 2 % (0-10); Red Blood Cell (RBC) Count 4.09 mill/uL (4.20-5.40); White Blood Cell (WBC) Count 5.2 thou/uL (4.8-10.8)
[2019-12-13] MEDS: Pantoprazole 40 MG VIAL IVP SCH (08:30)
[2019-12-13] MEDS: Dextrose 5 % And 0.9 % NaCl 1,000 ML IV SCH (08:30)
[2019-12-13] MEDS ORDERED: Lidocaine 1% PF 5 ML VIAL ONE (09:33)
[2019-12-13] MEDS ORDERED: PROPOFOL 200 MG/20 ML VIAL ONE (09:33)
[2019-12-13] MEDS ORDERED: Meperidine HCl/PF 25 MG/ML VIAL SLOW IVP PRN (10:36)
[2019-12-13] MEDS ORDERED: Promethazine HCl 25 MG/ML VIAL IM PRN (10:36)
[2019-12-13] MEDS ORDERED: HYDROmorphone 2 MG/ML VIAL SLOW IVP PRN (10:36)
[2019-12-13] MEDS ORDERED: Ketorolac Tromethamine 30 MG/ML VIAL IVP PRN (10:36)
[2019-12-13] MEDS ORDERED: Promethazine HCl 25 MG/ML VIAL SLOW IVP PRN (10:36)
[2019-12-13] MEDS ORDERED: Ondansetron HCl/PF 4 MG/2 ML Vial IVP PRN (10:36)
[2019-12-13] MEDS ORDERED: Ondansetron PF 4 MG/2 ML Vial ONE (10:38)
[2019-12-13] MEDS: Metoclopramide HCl 10 MG/2 ML VIAL IVP SCH ×3 (11:57→23:02)
[2019-12-13] MEDS: Ondansetron PF 4 MG/2 ML Vial IVP SCH ×3 (11:58→23:02)
[2019-12-13] MEDS ORDERED: Lidocaine Patch Removal 1 EACH TOP SCH (13:00)
--- NOTE | 2019-12-13 15:22 | PDOC.HOSPP ---
- Subjective Encounter Date: 12/13/19 Subjective: Complains of nausea. - Objective Vital Signs & Weight: Vital Signs (12 hours) Temp Pulse Resp BP BP BP Pulse Ox 12/13/19 11:04 97.1 F L 50 L 16 121/78 98 12/13/19 08:00 98 12/13/19 07:10 98.5 F 61 20 124/81 98 12/13/19 05:00 98.0 F 62 16 135/84 96 Weight Admit Weight 151 lb Weight 151 lb I&O: 12/12/19 12/13/19 12/14/19 06:59 06:59 06:59 Intake Total 2780 Balance 2780 Result Diagrams: 12/13/19 05:11 12/13/19 05:11 Hospitalist ROS - Medication Medications: Active Medications Generic Name Dose Route Start Last Admin Trade Name Freq PRN Reason Stop Dose Admin Acetaminophen 650 mg 12/08/19 15:42 12/12/19 11:36 Tylenol PO 650 mg Q4H PRN Administration Headache/Fever/Mild Pain (1-3) Dextrose/Sodium Chloride 1,000 mls @ 75 mls/hr 12/08/19 16:15 12/13/19 08:30 D5 0.9% Ns IV 1,000 mls .[id number] YANELI Administration Lidocaine 1 patch 12/13/19 01:00 12/13/19 00:29 Lidoderm 5% Patch TD 1 patch 0100 YANELI Administration Lorazepam 1 mg 12/08/19 15:57 12/13/19 00:30 Ativan SLOW IVP 1 mg Q4H PRN Administration Nausea Metoclopramide HCl 10 mg 12/13/19 11:00 12/13/19 11:57 Reglan IVP 10 mg Q6H YANELI Administration Morphine Sulfate 2 mg 12/09/19 13:23 12/12/19 23:15 Morphine SLOW IVP 2 mg Q4H PRN Administration Moderate to Severe Pain (6-10) Ondansetron HCl 4 mg 12/13/19 11:00 12/13/19 11:58 Zofran IVP 4 mg Q6H YANELI Administration Scopolamine 1.5 mg 12/09/19 13:30 12/12/19 14:14 Transderm Scop TD 1.5 mg Q3D YANELI Administration - Exam General Appearance: awake alert ENT: normocephalic atraumatic Neck: supple Respiratory: normal chest expansion, no tachypnea Extremities: no cyanosis Neurological: cranial nerve grossly intact, no weakness Hosp A/P (1) Intractable nausea and vomiting Code(s): R11.2 - NAUSEA WITH VOMITING, UNSPECIFIED Status: Acute (2) Dehydration Code(s): E86.0 - DEHYDRATION Status: Acute (3) Abdominal pain Code(s): R10.9 - UNSPECIFIED ABDOMINAL PAIN Status: Acute (4) Cannabis abuse Code(s): F12.10 - CANNABIS ABUSE, UNCOMPLICATED Status: Acute (5) Opioid abuse Code(s): F11.10 - OPIOID ABUSE, UNCOMPLICATED Status: Acute - Plan CT Abdomen and pelvis and US abdomen unremarkable. Her pain could be due to gastritis or cannabis hyperemesis syndrome. Pt with history of B12 Def. ? gastric atrophy with pernicious anemia. Continue IV fluids Continue Protonix and scopolamine patch. Clear liquid diet. Consulted Dr. Caballero. S/P EGD. Awaiting the results. She is malnurished and her PO intake not improving. We will initiate PPN.
--- NOTE | 2019-12-13 16:57 | OP ---
DATE OF PROCEDURE: 12/13/2019 PROCEDURE: Esophagogastroduodenoscopy. PREMEDICATION: Given by Anesthesiology Department. PREPROCEDURE DIAGNOSES: 1. Persistent nausea and vomiting. 2. History of limited hematemesis. POSTPROCEDURE DIAGNOSIS: Normal upper endoscopy to third portion of duodenum. DESCRIPTION OF PROCEDURE: Written consents were obtained prior to procedure. After adequate sedation, the forward-viewing endoscope was advanced down the stomach under direct vision to the third portion of duodenum. The duodenum and the bulb appeared normal. The pylorus was patent. The gastric antrum, body, fundus, and cardia all appeared normal. Retroflexion did not show any abnormality. The GE junction with a regular Z-line was noted at 41 cm. The distal, mid, and upper esophagus appeared normal. There was no mucosal abnormality. Inspection of the hypopharynx also appeared normal. ASSESSMENT: 1. Normal upper endoscopy. 2. Differential diagnosis of her persistent nausea, vomiting include hyperemesis , cannabinoid syndrome, postviral gastroparesis. RECOMMENDATION: 1. Scheduled IV metoclopramide and closely monitor for any side effects. 2. Change ondansetron to 4 mg q.6 scheduled. 3. We will start with clear liquids and advance as tolerated. Job ID: [id number] MTDD
[2019-12-13] MEDS: D5W-AA 4.25% with LYTES 1,000 ML BAG IV SCH (20:29)
[2019-12-14] MEDS: Lidocaine 5% Patch TD SCH ×2 (03:14→05:29)
[2019-12-14] MEDS: Dextrose 5 % And 0.9 % NaCl 1,000 ML IV SCH ×2 (03:14→14:30)
[2019-12-14] MEDS: Ondansetron PF 4 MG/2 ML Vial IVP SCH ×4 (04:59→23:52)
[2019-12-14] MEDS: Metoclopramide HCl 10 MG/2 ML VIAL IVP SCH ×3 (04:59→17:07)
[2019-12-14 06:14] LABS: Hemoglobin 12.8 g/dL (12.0-16.0); Mean Corpuscular HGB CONC 33.8 g/dL (32.0-36.0); Mean Corpuscular Hemoglobin 30.2 pg (27.0-31.0); Mean Corpuscular Volume 89.4 fL (78.0-98.0); Mean Platelet Volume 8.6 fL (7.4-10.4); Platelet Count 242 thou/uL (130-400); RBC Distribution Width 11.1 % (11.5-14.5); Red Blood Cell (RBC) Count 4.25 mill/uL (4.20-5.40); White Blood Cell (WBC) Count 6.5 thou/uL (4.8-10.8)
[2019-12-14 06:15] LABS: Band 1 % (5-11); Eosinophils 1 % (0-10); Lymphocytes 41 % (21-51); MDiff Complete? YES; Monocytes 5 % (0-10); Neutrophil 51 % (42-75); Platelet Morphology Comment Appears Adequate
[2019-12-14 06:18] LABS: Anion Gap 10 mmol/L (10-20); BUN (Urea Nitrogen) 9 mg/dL (7.0-18.7); Calc. Creatinine Clearance 126 mL/min (70-130); Carbon Dioxide 25 mmol/L (22-29); Chloride 105 mmol/L (98-107); Estimated GFR-MDRD Greater than 90; Glucose 96 mg/dL (70-105); Potassium 3.4 mmol/L (3.5-5.1); Sodium 137 mmol/L (136-145)
[2019-12-14] MEDS: D5W-AA 4.25% with LYTES 1,000 ML BAG IV SCH ×2 (08:18→19:37)
--- NOTE | 2019-12-14 17:06 | PDOC.HOSPP ---
- Subjective Encounter Date: 12/14/19 Subjective: Feels better. - Objective Vital Signs & Weight: Vital Signs (12 hours) Temp Pulse Resp BP Pulse Ox 12/14/19 07:20 98.5 F 85 16 108/70 97 Weight Admit Weight 151 lb Weight 151 lb Result Diagrams: 12/14/19 05:17 12/14/19 05:17 Hospitalist ROS - Medication Medications: Active Medications Generic Name Dose Route Start Last Admin Trade Name Freq PRN Reason Stop Dose Admin Acetaminophen 650 mg 12/08/19 15:42 12/12/19 11:36 Tylenol PO 650 mg Q4H PRN Administration Headache/Fever/Mild Pain (1-3) Amino Acids/Electrolytes/Dextrose 1,000 ml 12/13/19 15:30 12/14/19 08:18 Clinimix E 4.25/5 IV 1,000 ml INF YANELI Administration Dextrose/Sodium Chloride 1,000 mls @ 75 mls/hr 12/08/19 16:15 12/14/19 14:30 D5 0.9% Ns IV Not Given .[id number] YANELI Lidocaine 1 patch 12/14/19 06:00 12/14/19 05:29 Lidoderm 5% Patch TD 1 patch 0600 YANELI Administration Lorazepam 1 mg 12/08/19 15:57 12/13/19 23:02 Ativan SLOW IVP 1 mg Q4H PRN Administration Nausea Metoclopramide HCl 10 mg 12/13/19 11:00 12/14/19 11:50 Reglan IVP 10 mg Q6H YANELI Administration Morphine Sulfate 2 mg 12/09/19 13:23 12/12/19 23:15 Morphine SLOW IVP 2 mg Q4H PRN Administration Moderate to Severe Pain (6-10) Ondansetron HCl 4 mg 12/13/19 11:00 12/14/19 11:50 Zofran IVP 4 mg Q6H YANELI Administration Scopolamine 1.5 mg 12/09/19 13:30 12/12/19 14:14 Transderm Scop TD 1.5 mg Q3D YANELI Administration - Exam General Appearance: awake alert ENT: normocephalic atraumatic Neck: supple Respiratory: normal chest expansion, no tachypnea Gastrointestinal: non-tender Neurological: cranial nerve grossly intact, no focal deficits Hosp A/P (1) Intractable nausea and vomiting Code(s): R11.2 - NAUSEA WITH VOMITING, UNSPECIFIED Status: Acute (2) Dehydration Code(s): E86.0 - DEHYDRATION Status: Acute (3) Abdominal pain Code(s): R10.9 - UNSPECIFIED ABDOMINAL PAIN Status: Acute (4) Cannabis abuse Code(s): F12.10 - CANNABIS ABUSE, UNCOMPLICATED Status: Acute (5) Opioid abuse Code(s): F11.10 - OPIOID ABUSE, UNCOMPLICATED Status: Acute - Plan CT Abdomen and pelvis and US abdomen unremarkable. Her pain could be due to gastritis or cannabis hyperemesis syndrome. Pt with history of B12 Def. ? gastric atrophy with pernicious anemia. Continue IV fluids Continue Protonix and scopolamine patch. Clear liquid diet. EGD negative. Likely motility disorder. Improved with Metoclopramide. Advance to full liquid diet.
[2019-12-14] MEDS ORDERED: Lidocaine Patch Removal 1 EACH TOP SCH (18:00)
[2019-12-14] MEDS ORDERED: Promethazine HCl 25 MG/ML VIAL IM/IV PRN (20:18)
[2019-12-14] MEDS ORDERED: Promethazine HCl 25 MG/ML VIAL IM PRN (20:37)
[2019-12-14] MEDS ORDERED: Promethazine HCl 25 MG in Sodium Chloride 0.9% 50 ML IVPB PRN (20:38)
--- NOTE | 2019-12-14 20:40 | PRG ---
DATE OF SERVICE: 12/14/2019 SUBJECTIVE: Ms. Castillo was getting up to the bathroom when I came in to see her. She apparently inadvertently had a regular diet instead of full liquids and has done okay, but her stomach feels a little upset. There was about 20 minutes ago. She has not thrown up. Her appetite is better, but she states she does read a little bit about hyperemesis from cannabis and states she does not think she smokes much marijuana, that syndrome is described with. She does not recall getting sick from eating. She is not anything like this in the past. She is feeling better. I did review her chart with previous imaging studies including CAT scan, ultrasound, and the endoscopy. OBJECTIVE: VITAL SIGNS: Temperature is 98, pulse 60, and blood pressure 136/86. GENERAL: The patient is in no distress. She is on her way to the restroom. LABORATORY DATA: None today except for a white blood cell count of 6.5, hemoglobin of 12, and platelet count 142. She did have a low potassium that was last checked on 12/11. ASSESSMENT: Hyperemesis of unclear etiology. This may have been viral. This could have been related to cannabis. She seems to be improving. RECOMMENDATIONS: 1. Advanced diet as tolerated. We will recommend she do a very low residue, bland diet as she would advance this. 2. We would try to wean off narcotics. This is really not going to be very helpful and the scopolamine patch probably has not either. The Reglan could be used until it is not needed. I would place her on a PPI in case she may be having some reflux. We will follow along with you. Job ID: [id number]
[2019-12-14] MEDS ORDERED: Acetaminophen 650 MG Suppository PR PRN (21:12)
[2019-12-15] MEDS: Dextrose 5 % And 0.9 % NaCl 1,000 ML IV SCH ×2 (01:51→12:44)
[2019-12-15 05:58] LABS: Hemoglobin 13.4 g/dL (12.0-16.0); Mean Corpuscular HGB CONC 33.5 g/dL (32.0-36.0); Mean Corpuscular Hemoglobin 30.2 pg (27.0-31.0); Mean Platelet Volume 8.5 fL (7.4-10.4); Platelet Count 230 thou/uL (130-400); RBC Distribution Width 11.2 % (11.5-14.5); Red Blood Cell (RBC) Count 4.45 mill/uL (4.20-5.40); White Blood Cell (WBC) Count 5.6 thou/uL (4.8-10.8)
[2019-12-15 06:13] LABS: Anion Gap 14 mmol/L (10-20); BUN (Urea Nitrogen) 15 mg/dL (7.0-18.7); Calc. Creatinine Clearance 122 mL/min (70-130); Calcium 9.1 mg/dL (7.8-10.44); Carbon Dioxide 23 mmol/L (22-29); Chloride 106 mmol/L (98-107); Estimated GFR-MDRD Greater than 90; Glucose 93 mg/dL (70-105); Potassium 3.6 mmol/L (3.5-5.1); Sodium 139 mmol/L (136-145)
[2019-12-15] MEDS: Lidocaine 5% Patch TD SCH (06:17)
[2019-12-15] MEDS: Ondansetron PF 4 MG/2 ML Vial IVP SCH ×2 (06:18→11:06)
[2019-12-15 08:21] VITALS: BP 115/77; TEMP 98.1
[2019-12-15] MEDS: D5W-AA 4.25% with LYTES 1,000 ML BAG IV SCH (08:37)
[2019-12-15 09:20] LABS: Band 1 % (5-11); Eosinophils 3 % (0-10); Lymphocytes 37 % (21-51); MDiff Complete? YES; Monocytes 10 % (0-10); Neutrophil 49 % (42-75); RBC Morphology Normal
[2019-12-15] MEDS: Scopolamine 1.5 mg/72 hour Patch TD SCH (13:10)
--- NOTE | 2019-12-15 17:17 | PRG ---
DATE OF SERVICE: 12/15/2019 SUBJECTIVE: Ms. Castillo is feeling much better. She states this is the best she has felt of the day since she has been here. OBJECTIVE: VITAL SIGNS: Temperature is 98, pulse 81, blood pressure 115/77. ABDOMEN: Soft, nontender. She is no longer having diarrhea. She is tolerating liquids well. LABORATORY DATA: White count 5.6, hemoglobin 13, platelet count potassium is 3.6 now. Electrolytes otherwise normal. 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 Normal EGD. Normal CAT scan and ultrasound. I think she can go home with a full liquid diet, advance as tolerated, p.r.n. Zofran or Reglan. If needed, she can follow up with primary physician in our office in 1 to 2 weeks. Job ID: [id number]
--- NOTE | 2019-12-16 01:50 | DIS ---
DATE OF ADMISSION: 12/08/2019 DATE OF DISCHARGE: 12/15/2019 DISCHARGE DIAGNOSES: 1. Hematemesis. 2. 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 3. Dehydration. 4. Abdominal pain. 5. Cannabis abuse. 6. Opioid abuse. DISCHARGE MEDICATIONS: 1. Protonix 40 mg orally daily. 2. Metoclopramide 5 mg orally twice daily as needed for nausea x10 tablets. HISTORY OF PRESENT ILLNESS AND HOSPITAL COURSE: The patient is a 34-year-old female with history of vitamin B12 deficiency, who presented to the hospital with intractable nausea and vomiting. Her symptoms started 2 days prior to presentation and she has not been able to keep anything down since then. She also complained of abdominal pain, right upper quadrant and left upper quadrant pain. She denied fever or chills. She did have some diarrhea prior to presentation. The patient was found to be clinically dehydrated and was admitted to the hospital for further evaluation. She received IV fluids and was managed initially with bowel rest. Gradual advancement of diet was not well tolerated and the patient continued to vomit. GI was consulted and she underwent upper GI endoscopy, which showed normal findings. Her continued vomiting was thought to be due to marijuana hyperemesis syndrome versus gastroparesis caused by a viral illness. She was placed on metoclopramide, which led to improvement in her symptoms. The patient was on TPN for a couple of days after her fifth day of hospitalization. This was tapered off as the patient's oral intake has improved. She was counseled against marijuana and opioid use. Job ID: [id number]
== END 2019-12-15 17:38 | disposition home or self-care (01) | DRG 392 ==
LOC: T4-A 12:28 → UNDOADMOB 12:28 → OBSVTOIN 13:33 → T4-A 13:33
PROVIDERS: ADMIT Internal Medicine; ATTEND Internal Medicine
PROC: 0DJ08ZZ Inspection of Upper Intestinal Tract, Via Natural or Artificial Opening Endoscopic (ICD-10-PCS; principal; 2019-12-13)
DX: R11.2 Nausea with vomiting, unspecified (principal); K92.0 Hematemesis; K52.9 Noninfective gastroenteritis and colitis, unspecified; K31.84 Gastroparesis; E53.8 Deficiency of other specified B group vitamins; F17.210 Nicotine dependence, cigarettes, uncomplicated; E87.6 Hypokalemia; E86.0 Dehydration; F11.10 Opioid abuse, uncomplicated; F12.10 Cannabis abuse, uncomplicated
CPT/HCPCS: 36415; 36416; 74177; 76705; 80048; 80053; 80306; 81001; 81025; 82607; 83690; 84443; 85007; 85025; 85027; C9113; J1885; J2001; J2060; J2270; J2405; J2550; J2704; J2765; J3480; J7050; Q9967; S0028